=== PATIENT | female | born 1990 | race Caucasian/White ===

== ENCOUNTER 2024-07-28 06:55 | Inpatient (IN) | payer OTHER ==
[~2024-07-28] VITALS: Ht 165.1 cm; Wt 81.2 kg
--- NOTE | ~2024-07-28 | OR ---
[facility] [address], [place] [address] Draft DATE OF OPERATION: 08/05/2024 SURGEON: Ho Cruz DO PREOPERATIVE DIAGNOSES: 1. Intrauterine at 39 weeks gestation. 2. History of prior section x2. 3. Rh negative. POSTOPERATIVE DIAGNOSES: 1. Intrauterine at 39 weeks gestation. 2. History of prior section x2. 3. Rh negative. PROCEDURE: Repeat low transverse section. PUBLIC TRANSIT TROLLEY DRIVER: None. ANESTHESIA: Spinal with postop TAP blocks. ESTIMATED BLOOD LOSS: 860 mL. DRAINS: Castillo to gravity. COMPLICATIONS: None. FINDINGS: Delivery of viable male in the ROT position with no nuchal cord and clear amniotic fluid with Apgars of 9 and 9, weighing 9 pounds 12 ounces. No intraabdominal or pelvic adhesions. Normal uterus, tubes, and ovaries. INDICATIONS: Ms. Serna is a very pleasant 33-year-old G3, P2 female who presents for scheduled repeat low transverse section at 39 weeks gestation. complicated by prior PATIENT NAME: YARELY SERNA OPERATIVE REPORT DATE OF : 86 REPORT #: [id number] PHYSICIAN: HO CRUZ (HUNTER) PCP: HO CRUZ (HUNTER) REPORT IS CONFIDENTIAL AND NOT TO BE RELEASED WITHOUT AUTHORIZATION [address] [address] Draft x2, advanced maternal age, anemia improved with oral iron, and Rh negative status post RhoGAM. No labor. Reviewed repeat including risks, benefits, and alternatives. Patient declines salpingectomy. The patient wishes to proceed with scheduled. DESCRIPTION OF PROCEDURE: The patient was taken to the OR. A time-out was performed to confirm correct patient, correct procedure. Spinal anesthesia was adequately established. The patient was prepped and draped in the supine position with a bump on the right hip. Castillo catheter was inserted. ICPs were on and running. Patient received Ancef 2 g preoperatively and no heparin was indicated. Once the patient was prepped and draped, the neural axial anesthesia was found to be adequate and a Pfannenstiel skin incision was made through the prior Pfannenstiel scar. Incision was carried down to the fascia. The fascia was nicked in the midline and fascial incision extended bilaterally using curved Castillo scissors. Fascia was grasped with Mine's, elevated, and the underlying rectus dissected off bluntly and sharply. The peritoneum was entered bluntly and peritoneal incision was extended cephalad, caudad using blunt and sharp dissection. Lower uterine segment was identified. No intraabdominal or pelvic adhesions were identified. The Manjeet self retractor was placed and hysterotomy was performed using a surgical scalpel returning clear amniotic fluid. Hysterotomy was extended bilaterally using blunt dissection. Surgeon's hand was placed in the uterine cavity. head elevated and delivered with the assistance of fundal pressure. Remainder of the delivered without difficulty and the baby was vigorous and cried. Delayed cord clamping x2 minutes. Baby was handed to the waiting pediatric team for further care. Cord blood was obtained for routine analysis. The placenta was expressed, intact with a centrally inserted three-vessel cord. The uterine cavity was cleared of any remaining products of conception or clot and bleeding was noted to be moderate. Bleeding quickly resolved with Pitocin. Hysterotomy was repaired in two layers of 0 Monocryl, first being a running locked layer and the second being a running imbricating stitch in a vertical manner. Excellent hemostasis was appreciated. The uterus, tubes, and ovaries were inspected and found to be normal. All blood was removed from the pelvis and the pelvis was irrigated. Hemostasis was appreciated and the Manjeet self retractor was removed. Peritoneum was reapproximated using 2-0 Vicryl in a running nonlocked manner. Rectus was made hemostatic with judicious use of Bovie electrocautery and the rectus was plicated loosely in the midline with four interrupted sutures of 0 Vicryl. Fascia was reapproximated using 0 Vicryl in a running nonlocked manner. Subcu was made hemostatic with Bovie electrocautery and was reapproximated using 3-0 Vicryl. Skin was reapproximated using 2-0 Quill suture in subcuticular stitch with excellent hemostasis and cosmesis. The uterus was Crede'd for scant amount of blood. The patient remained in the OR for postoperative TAP block per Anesthesia. Sponge, needle and instrument counts correct x2 at the end of procedure. PATIENT NAME: YARELY SERNA OPERATIVE REPORT DATE OF : 86 REPORT #: [id number] PHYSICIAN: HO CRUZ (HUNTER) DO PCP: HO CRUZ (HUNTER) DO REPORT IS CONFIDENTIAL AND NOT TO BE RELEASED WITHOUT AUTHORIZATION [facility] [address] [place] [id number] Draft Ho Cruz DO JDGrecia/MODL /[id number] Copies: ~ PATIENT NAME: YARELY SERNA OPERATIVE REPORT DATE OF : 86 REPORT #: [id number] PHYSICIAN: HO CRUZ (HUNTER) PCP: HO CRUZ (HUNTER) REPORT IS CONFIDENTIAL AND NOT TO BE RELEASED WITHOUT AUTHORIZATION
[~2024-07-28 06:55] MED LIST: PRENATAL VITAM1 EAC6 PO; ZANTAC150 MG PO
[2024-08-04] MEDS ORDERED: LACTATED RINGER'S 2,000 ML IV PRN (15:45)
[2024-08-04] MEDS ORDERED: LACTATED RINGER'S 1,000 ML IV SCH (15:45)
[2024-08-05 05:53] VITALS: BP 107/68
[2024-08-05 05:53] LABS: HEMATOCRIT 32.3 % (35.0-50.0); HEMOGLOBIN 11.7 g/dL (12.0-18.0); MCHC 36.3 g/dl (30-36); MCV 96.3 fl (81-99); RBC 3.36 M/ul (4.3-5.7); RDW 13.2 (10.5-15.0)
[2024-08-05] MEDS ORDERED: IRON325 M1 PO (06:11)
[2024-08-05 06:17] LABS: AMPHETAMINES, URINE NEGATIVE (NEGATIVE); BARBITURATES, URINE NEGATIVE (NEGATIVE); BENZODIAZEPINE, URINE NEGATIVE (NEGATIVE); BUPRENORPHINE, URINE NEGATIVE (NEGATIVE); CANNABINOID, URINE NEGATIVE (NEGATIVE); COCAINE, URINE NEGATIVE (NEGATIVE); ECSTASY, URINE NEGATIVE (NEGATIVE); FENTANYL, URINE NEGATIVE (NEGATIVE); METHADONE, URINE NEGATIVE (NEGATIVE); OPIATES, URINE NEGATIVE (NEGATIVE); OXYCODONE, URINE NEGATIVE (NEGATIVE); PHENCYCLIDINE, URINE NEGATIVE (NEGATIVE)
[2024-08-05] MEDS ORDERED: CEFAZOLIN SODIUM 2 GM/20 ML SYR IV SCH (07:00)
[2024-08-05] MEDS ORDERED: SOD+POT BICARB/CITRIC ACID 2 EA TABLET.EFF PO SCH (07:00)
[2024-08-05 07:05] LABS: ABO A; ANTIBODY SCREEN POSITIVE; RH NEGATIVE
[2024-08-05] MEDS ORDERED: BUPIVACAINE 0.75% IN DEXTROSE 2 ML AMP ONE (07:09)
[2024-08-05] MEDS ORDERED: fentaNYL citrate 100 MCG/2 ML VIAL ONE (07:09)
[2024-08-05] MEDS ORDERED: Ropivacaine HCl 0.5% 30 ML VIAL ONE (07:09)
[2024-08-05] MEDS ORDERED: ondansetron HCL 4 MG/2 ML VIAL ONE (07:09)
[2024-08-05] MEDS ORDERED: DEXAMETHASONE SOD PHOS 4 MG/ML VIAL ONE (07:09)
[2024-08-05] MEDS ORDERED: LIDOCAINE HCL 2% 5 ML SDV ONE (07:09)
[2024-08-05] MEDS ORDERED: OXYTOCIN 10 UNITS/ML VIAL ONE ×3 (07:09→08:04)
[2024-08-05] MEDS ORDERED: MORPHINE SULFATE 1 MG/ML VIAL ONE (07:09)
[2024-08-05] MEDS ORDERED: SODIUM CHLORIDE 0.9% 20 ML IV ONE (07:10)
[2024-08-05 07:15] LABS: ANTIBODY IDENTIFICATION anti-D
[2024-08-05] MEDS ORDERED: PHENYLEPHRINE HCL 10 MG/ML VIAL ONE (07:35)
[2024-08-05] MEDS ORDERED: ePHEDrine sulfate 50 MG/ML AMP ONE (07:36)
[2024-08-05] MEDS ORDERED: HYDROmorphone HCL 1 MG/ML SYR IV PRN (08:00)
[2024-08-05] MEDS ORDERED: ondansetron HCL 4 MG/2 ML VIAL IV PRN (08:00)
[2024-08-05] MEDS ORDERED: KETOROLAC TROMETHAMINE 30 MG/ML VIAL IV PRN (08:00)
[2024-08-05] MEDS ORDERED: diphenhydrAMINE HCL 50 MG/ML VIAL IV PRN (08:00)
[2024-08-05] MEDS ORDERED: PROCHLORPERAZINE EDISYLATE 10 MG/2 ML VIAL IV PRN (08:00)
[2024-08-05] MEDS ORDERED: NALOXONE HCL 0.4 MG SYR IV PRN (08:00)
[2024-08-05] MEDS ORDERED: dexmedeTOMIDine HCl 200 MCG/2 ML VIAL ONE (08:02)
[2024-08-05] MEDS ORDERED: LACTATED RINGER'S 1,000 ML IV ONE ×2 (08:04)
--- NOTE | 2024-08-05 08:54 | NUR ---
08/05/24 0853 Adele Marcelino 6157-PATIENT ARRIVED TO ROOM 104 FOR RECOVERY. PATIENT AWAKE DENIES PAIN OR NAUSEA. SR HR 60'S LR WITH 20 PITOCIN TO LEFT ARM INFUSING CDI. FUNDUS FIRM 1 ABOVE UMBILICUS LIGHT RUBRA DRAINAGE ON MARGOT PAD. WEAVER CATHETER DRAINING CLEAR YELLOW URINE. AT BEDSIDE. FBC AT BEDSIDE WITH BABY. BED PLUGGED IN
[2024-08-05] MEDS ORDERED: HYDROCODONE/ACETA 5/325 TAB PO PRN (09:00)
[2024-08-05] MEDS ORDERED: PROMETHAZINE HCL 25 MG SUPP PR PRN (09:00)
[2024-08-05] MEDS ORDERED: OXYCODONE HCL 5 MG TAB PO PRN (09:00)
[2024-08-05] MEDS ORDERED: OXYCODONE/APAP 5/325 TAB PO PRN (09:00)
[2024-08-05] MEDS ORDERED: bisacodyL 10 MG SUPP PR PRN (09:00)
[2024-08-05] MEDS ORDERED: METOCLOPRAMIDE HCL 10 MG/2 ML SDV IV PRN (09:00)
[2024-08-05] MEDS ORDERED: SENNOSIDES/DOCUSATE 1 EA TAB PO SCH (09:00)
[2024-08-05] MEDS ORDERED: PROMETHAZINE HCL 25 MG TAB PO PRN (09:00)
[2024-08-05] MEDS ORDERED: OXYTOCIN/0.9 % SODIUM CHLORIDE 500 ML IV SCH (09:00)
[2024-08-05] MEDS ORDERED: LACTATED RINGER'S 1,000 ML IV SCH (09:04)
[2024-08-05 09:15] VITALS: BP 113/66
[2024-08-05] MEDS ORDERED: SIMETHICONE 80 MG CHEW PO SCH (11:00)
[2024-08-05] MEDS ORDERED: KETOROLAC TROMETHAMINE 30 MG/ML VIAL IV SCH (14:00)
[2024-08-05 15:45] LABS: HEMATOCRIT 34.6 % (35.0-50.0); HEMOGLOBIN 12.2 g/dL (12.0-18.0); MCH 32.7 (27-36); MCHC 35.2 g/dl (30-36); RBC 3.72 M/ul (4.3-5.7); RDW 13.4 (10.5-15.0)
[2024-08-05 16:00] LABS: INR 0.93 (0.80-1.30); PARTIAL THROMBOPLASTIN TIME 26.3 Sec (22.9-41.3); PROTIME 11.9 Sec (11.2-14.2)
[2024-08-06 05:33] LABS: HEMOGLOBIN 10.6 g/dL (12.0-18.0); MCH 33.3 (27-36); MCHC 35.3 g/dl (30-36); MCV 94.5 fl (81-99); RBC 3.17 M/ul (4.3-5.7); RDW 13.9 (10.5-15.0)
[2024-08-06 07:10] LABS: ABO A; RH NEGATIVE
[2024-08-06 07:11] LABS: ANTIBODY SCREEN POSITIVE; FETAL HEMOGLOBIN SCREEN NEGATIVE; RHIG DOSE 1; RHIG STATUS CANDIDATE; RHIG VIAL 1 RG24K03-A
[2024-08-06] MEDS ORDERED: ondansetron HCL 4 MG/2 ML VIAL IV PRN (08:00)
[2024-08-06] MEDS ORDERED: PROCHLORPERAZINE EDISYLATE 10 MG/2 ML VIAL IV PRN (08:00)
--- NOTE | 2024-08-06 13:10 | PR ---
[facility] [address] [facility] [place], [place] [address] Signed PP Progress Notes Datetime Report Generated by CPN: 08/06/2024 13:10 SUBJECTIVE: [id number] Pain: Within Normal Limits Nausea/Vomiting: Denies Bowel Movement: Yes Vital Signs: [id number] Vital Signs: Reviewed; Within Normal Limits EXAM: Ongoing Cardiovascular: Normal Respiratory: Normal Abdomen/Uterus: Normal Lochia: Normal CVA Tenderness: Normal Extremities: Normal Incision: Normal Progress: Normal Exam Comments: Fundus firm U-2 nontender. Incision well healing IMPRESSION/PLAN/PROCEDURES: [id number] Impression: Normal Progression Plan: Continue Present Management Procedures: Rhogam Progress Notes: Pt seen and examined. Doing well. Ambulating, voiding, and tolerating full diet. Pain and lochia minimal. Reviewed labs. well. No fevers/chills. No other concerns. Rhogam this afternoon. Anticipate d/c home tomorrow. Signing Physician: Ho Cruz DO Copies: ~ *Electronically Signed* 08/06/24 8521 HO CRUZ (HUNTER) DO PATIENT NAME: YARELY SERNA PROGRESS NOTE DATE OF : 86 PHYSICIAN: HO CRUZ (HUNTER) DO RPT #: [id number] REPORT IS CONFIDENTIAL AND NOT TO BE RELEASED WITHOUT AUTHORIZATION
[2024-08-06] MEDS ORDERED: IBUPROFEN 600 MG TAB PO SCH (14:00)
[2024-08-06 14:35] LABS: ANTIBODY IDENTIFICATION anti-D
[2024-08-06] MEDS ORDERED: ACETAMINOPHEN 325 MG TAB PO PRN (18:30)
[2024-08-06] MEDS ORDERED: IBUPROFEN 800 MG TAB PO SCH (20:00)
--- NOTE | 2024-08-07 10:10 | PR ---
[facility] [address] [facility] [place], [place] [address] Signed PP Progress Notes Datetime Report Generated by CPN: 08/07/2024 10:09 SUBJECTIVE: [id number] Pain: Within Normal Limits Nausea/Vomiting: Denies Flatus: Yes Bowel Movement: Yes Vital Signs: [id number] Vital Signs: Reviewed; Within Normal Limits EXAM: Ongoing Cardiovascular: Normal Respiratory: Normal Abdomen/Uterus: Normal Lochia: Normal Vulva/Perineum: Normal Breasts: Normal CVA Tenderness: Normal Extremities: Normal Incision: Normal Progress: Not Applicable Exam Comments: Fundus firm U-2 nontender. Incision well healing IMPRESSION/PLAN/PROCEDURES: [id number] Impression: Normal Progression Plan: Continue Present Management; Discharge Procedures: None Progress Notes: No concerns. Pain well controlled. Lochia WNL. Desires D/C home. Signing Physician: Ho Cruz DO Copies: ~ *Electronically Signed* 08/07/24 1007 HO CRUZ (HUNTER) DO PATIENT NAME: YARELY SERNA PROGRESS NOTE DATE OF : 86 PHYSICIAN: HO CRUZ (HUNTER) DO RPT #: [id number] REPORT IS CONFIDENTIAL AND NOT TO BE RELEASED WITHOUT AUTHORIZATION
== END 2024-08-07 11:30 | disposition home or self-care (01) | DRG 788 ==
LOC: FBC 08-05 05:12
PROVIDERS: ADMIT Obstetrics & Gynecology; ATTEND Obstetrics & Gynecology
PROC: 10D00Z1 Extraction of Products of Conception, Low, Open Approach (ICD-10-PCS; principal; 2024-08-05 07:30)
PROC: 10907ZC Drainage of Amniotic Fluid, Therapeutic from Products of Conception, Via Natural or Artificial Opening (ICD-10-PCS; 2024-08-06)
PROC: 3E0334Z Introduction of Serum, Toxoid and Vaccine into Peripheral Vein, Percutaneous Approach (ICD-10-PCS; 2024-08-06)
DX: O34.211 Maternal care for low transverse scar from previous cesarean delivery (principal); O26.893 Other specified pregnancy related conditions, third trimester; Z3A.39 39 weeks gestation of pregnancy; Z37.0 Single live birth; Z67.91 Unspecified blood type, Rh negative; Z98.890 Other specified postprocedural states; O99.02 Anemia complicating childbirth
CPT/HCPCS: 01961; 36415; 76942; 80307; 83030; 85027; 85384; 85610; 85730; 86850; 86870; 86900; 86901; A9270; J0690; J1100; J1885; J2003; J2274; J2371; J2405; J2590; J2790; J2795; J3010; J7121